=== PATIENT | female | born 1955 | race Caucasian/White ===

== ENCOUNTER → 2016-08-17 | Outpatient (CLI) | payer OTHER ==
[2016-03-02 10:45] VITALS: BP 166/104
[~2016-08-17] MED LIST: BACTRIM DS TAB1 EACH PO; LEVAQUIN 5500 MG/TA1 PO; LOW DOSE ASPIRI81 MG PO; NORCO 325 MG-51 TA1 PO; PRILOSEC10 M1 PO
== END ==
LOC: LAB 08:58
DX: D50.0 Iron deficiency anemia secondary to blood loss (chronic) (principal)

== ENCOUNTER → 2016-12-06 | Outpatient (CLI) | payer OTHER ==
[2016-03-02 10:45] VITALS: BP 166/104
== END ==
LOC: RAD 16:49
DX: M94.0 Chondrocostal junction syndrome [Tietze] (principal); K44.9 Diaphragmatic hernia without obstruction or gangrene; K80.80 Other cholelithiasis without obstruction

== ENCOUNTER → 2016-12-10 | Outpatient (CLI) | payer OTHER ==
[2016-03-02 10:45] VITALS: BP 166/104
== END ==
LOC: LAB 16:43
DX: K80.20 Calculus of gallbladder without cholecystitis without obstruction (principal)

== ENCOUNTER → 2016-12-12 | Outpatient (CLI) | payer OTHER ==
[2016-03-02 10:45] VITALS: BP 166/104
== END ==
LOC: RAD 09:10
DX: K80.20 Calculus of gallbladder without cholecystitis without obstruction (principal); M94.0 Chondrocostal junction syndrome [Tietze]; K80.19 Calculus of gallbladder with other cholecystitis with obstruction; K76.0 Fatty (change of) liver, not elsewhere classified

== ENCOUNTER → 2017-08-12 | Outpatient (CLI) | payer OTHER ==
[2016-03-02 10:45] VITALS: BP 166/104
[2017-08-12 19:56] LABS: HEMATOCRIT 24.4 % (37.0-47.0); MEAN PLATELET VOLUME 9.5 fl (7.4-10.4); RED BLOOD COUNT 3.15 M/mm3 (4.10-5.30); WHITE BLOOD COUNT 6.6 K/mm3 (4.8-10.8)
[2017-08-12 20:05] LABS: ALBUMIN 3.8 g/dL (3.5-5.0); BUN/CREATININE RATIO 19.5 (6.0-26.0); CALCIUM 9.1 mg/dL (8.4-10.2); POTASSIUM 4.2 mmol/L (3.6-5.0); TOTAL BILIRUBIN 0.1 mg/dL (0.2-1.3); TOTAL PROTEIN 6.5 g/dL (6.3-8.2)
[2017-08-12 21:22] LABS: HEMOGLOBIN 6.8 g/dL (12.5-16.0); RED CELL DISTRIBUTION WIDTH 18.4 % (11.5-14.5)
[2017-08-12 21:30] LABS: PH-URINE 7.5 (5.0 - 8.0); URINE APPEARANCE HAZY; URINE BILIRUBIN NEGATIVE (NEGATIVE); URINE BLOOD NEGATIVE (NEGATIVE); URINE COLOR YELLOW; URINE GLUCOSE NEGATIVE (NEGATIVE); URINE KETONE NEGATIVE (NEGATIVE); URINE LEUKOCYTE ESTERASE TRACE (NEGATIVE); URINE NITRATE NEGATIVE (NEGATIVE); URINE PROTEIN(semi-quant) NEGATIVE (NEGATIVE); URINE UROBILINOGEN NORMAL (NORMAL)
== END ==
LOC: LAB 16:07
PROVIDERS: Family Medicine
DX: R53.83 Other fatigue (principal); D64.9 Anemia, unspecified

== ENCOUNTER → 2017-08-13 | Outpatient (CLI) | payer OTHER ==
[2016-03-02 10:45] VITALS: BP 166/104
== END ==
LOC: LAB 11:53
DX: Z01.83 Encounter for blood typing (principal); D64.9 Anemia, unspecified

== ENCOUNTER → 2017-08-14 | Outpatient (CLI) | payer OTHER ==
[~2017-08-14] VITALS: Ht 160 cm; Wt 85.5 kg
[2017-08-14] VITALS (13 sets, daily range): BP systolic 106–150; BP diastolic 63–84
== END ==
LOC: AMSURD 15:27
DX: D64.9 Anemia, unspecified (principal)
CPT/HCPCS: P9016

== ENCOUNTER → 2017-09-30 | Outpatient (CLI) | payer OTHER ==
[2017-08-14 21:40] VITALS: BP 132/83
[2017-09-30 10:08] LABS: EOS # 0.1 (0.04-0.40); HEMATOCRIT 35.6 % (37.0-47.0); HEMOGLOBIN 10.5 g/dL (12.5-16.0); LYMPH# 1.2 (1.50-4.00); MEAN CELL VOLUME 85 fl (78-100); MEAN CORPUSCULAR HEMOGLOBIN 25 pg (27-31); MEAN CORPUSCULAR HGB CONC 30 g/dL (33-37); MEAN PLATELET VOLUME 8.5 fl (7.4-10.4); MONO # 0.3 (0.20-0.80); NEU # 2.8 (1.40-6.50); PLATELET COUNT 328 K/mm3 (130-400); WHITE BLOOD COUNT 4.4 K/mm3 (4.8-10.8)
[2017-09-30 10:18] LABS: RED CELL DISTRIBUTION WIDTH 19.4 % (11.5-14.5)
[2017-09-30 11:27] LABS: ALBUMIN 3.6 g/dL (3.5-5.0); BUN/CREATININE RATIO 17.9 (6.0-26.0); CALCIUM 8.9 mg/dL (8.4-10.2); POTASSIUM 3.9 mmol/L (3.6-5.0); TOTAL BILIRUBIN 0.2 mg/dL (0.2-1.3); TOTAL PROTEIN 6.3 g/dL (6.3-8.2)
== END ==
LOC: LAB 09:37
PROVIDERS: Family Medicine
DX: I10 Essential (primary) hypertension (principal); E78.5 Hyperlipidemia, unspecified; M85.80 Other specified disorders of bone density and structure, unspecified site

== ENCOUNTER → 2017-10-21 | Outpatient (CLI) | payer OTHER ==
[2017-08-14 21:40] VITALS: BP 132/83
== END ==
LOC: MAMMO 11:14
DX: Z12.31 Encounter for screening mammogram for malignant neoplasm of breast (principal)

== ENCOUNTER → 2018-11-04 | Outpatient (CLI) | payer BC ==
[2017-08-14 21:40] VITALS: BP 132/83
== END ==
LOC: MAMMO 14:11
DX: Z12.31 Encounter for screening mammogram for malignant neoplasm of breast (principal); Z13.820 Encounter for screening for osteoporosis; M81.0 Age-related osteoporosis without current pathological fracture

== ENCOUNTER → 2020-10-04 | Outpatient (CLI) | payer BC, MEDICARE ==
[2020-10-04 15:29] LABS: BASO # 0.06 (0.02-0.10); EOS # 0.14 (0.04-0.40); EOS % 2.4 % (1.0-5.0); HEMATOCRIT 41.5 % (37.0-47.0); HEMOGLOBIN 13.1 g/dL (12.5-16.0); LYMPH# 1.39 (1.50-4.00); MEAN CELL VOLUME 87 fl (78-100); MEAN CORPUSCULAR HEMOGLOBIN 28 pg (27-31); MEAN CORPUSCULAR HGB CONC 32 g/dL (33-37); MEAN PLATELET VOLUME 8.5 fl (7.4-10.4); MONO # 0.36 (0.20-0.80); NEU # 3.77 (1.40-6.50); PLATELET COUNT 258 K/mm3 (130-400); RED BLOOD COUNT 4.76 M/mm3 (4.10-5.30); RED CELL DISTRIBUTION WIDTH 13.7 % (11.5-14.5); WHITE BLOOD COUNT 5.7 K/mm3 (4.8-10.8)
[2020-10-04 15:30] LABS: ALBUMIN 3.8 g/dL (3.4-4.8); POTASSIUM 3.8 mmol/L (3.5-5.1)
[2020-10-04 15:31] LABS: CALCIUM 8.9 mg/dL (8.3-10.5)
[2020-10-04 15:33] LABS: TOTAL PROTEIN 6.3 g/dL (6.2-8.1)
[2020-10-04 15:35] LABS: TOTAL BILIRUBIN 0.3 mg/dL (0.2-1.2)
== END ==
LOC: LAB 14:45
PROVIDERS: Family Medicine
DX: Z00.00 Encounter for general adult medical examination without abnormal findings (principal); D50.9 Iron deficiency anemia, unspecified; E78.5 Hyperlipidemia, unspecified

== ENCOUNTER → 2020-10-24 | Outpatient (CLI) | payer BC, MEDICARE | LOC: MAMMO 09:45 | DX: Z13.820 Encounter for screening for osteoporosis (principal); Z12.31 Encounter for screening mammogram for malignant neoplasm of breast; M81.0 Age-related osteoporosis without current pathological fracture ==

== ENCOUNTER → 2021-07-18 | Outpatient (CLI) | payer BC | LOC: LAB 10:44 | DX: H60.11 Cellulitis of right external ear (principal) ==

== ENCOUNTER → 2022-02-05 | Outpatient (CLI) | payer BC ==
[2022-02-05 15:52] LABS: BASO # 0.04 K/mm3 (0.02-0.10); EOS # 0.17 K/mm3 (0.04-0.40); EOS % 2.6 % (1.0-5.0); HEMATOCRIT 41.8 % (37.0-47.0); HEMOGLOBIN 13.3 g/dL (12.5-16.0); LYMPH# 1.61 K/mm3 (1.50-4.00); MEAN CELL VOLUME 89 fl (78-100); MEAN CORPUSCULAR HEMOGLOBIN 28 pg (27-31); MEAN CORPUSCULAR HGB CONC 32 g/dL (33-37); MEAN PLATELET VOLUME 8.5 fl (7.4-10.4); MONO # 0.49 K/mm3 (0.20-0.80); NEU # 4.16 K/mm3 (1.40-6.50); PLATELET COUNT 239 K/mm3 (130-400); RED CELL DISTRIBUTION WIDTH 13.4 % (11.5-14.5); WHITE BLOOD COUNT 6.5 K/mm3 (4.8-10.8)
[2022-02-05 16:03] LABS: POTASSIUM 3.9 mmol/L (3.5-5.1)
[2022-02-05 16:04] LABS: ALBUMIN 3.9 g/dL (3.4-4.8)
[2022-02-05 16:05] LABS: CALCIUM 9.6 mg/dL (8.3-10.5)
[2022-02-05 16:06] LABS: TOTAL PROTEIN 6.5 g/dL (6.2-8.1)
[2022-02-05 16:08] LABS: TOTAL BILIRUBIN 0.3 mg/dL (0.2-1.2)
== END ==
LOC: LAB 15:40
PROVIDERS: Family Medicine
DX: Z00.00 Encounter for general adult medical examination without abnormal findings (principal); G20 Parkinson's disease; M81.0 Age-related osteoporosis without current pathological fracture; Z12.39 Encounter for other screening for malignant neoplasm of breast; K21.9 Gastro-esophageal reflux disease without esophagitis; D50.9 Iron deficiency anemia, unspecified; E78.5 Hyperlipidemia, unspecified; K57.30 Diverticulosis of large intestine without perforation or abscess without bleeding; K44.9 Diaphragmatic hernia without obstruction or gangrene; H90.5 Unspecified sensorineural hearing loss; I10 Essential (primary) hypertension; E66.9 Obesity, unspecified

== ENCOUNTER → 2022-02-06 | Outpatient (CLI) | payer BC | LOC: MAMMO 15:15 | DX: Z12.31 Encounter for screening mammogram for malignant neoplasm of breast (principal) ==

== ENCOUNTER → 2023-02-18 | Outpatient (CLI) | payer BC | LOC: LAB 15:44 | DX: Z00.00 Encounter for general adult medical examination without abnormal findings (principal); Z12.31 Encounter for screening mammogram for malignant neoplasm of breast; M79.672 Pain in left foot; E78.5 Hyperlipidemia, unspecified; K57.30 Diverticulosis of large intestine without perforation or abscess without bleeding; K21.9 Gastro-esophageal reflux disease without esophagitis; K44.9 Diaphragmatic hernia without obstruction or gangrene; I10 Essential (primary) hypertension; D50.9 Iron deficiency anemia, unspecified; E66.9 Obesity, unspecified; M81.0 Age-related osteoporosis without current pathological fracture; H90.5 Unspecified sensorineural hearing loss; G20.A2 Parkinson's disease without dyskinesia, with fluctuations; N39.46 Mixed incontinence; R07.9 Chest pain, unspecified ==

== ENCOUNTER → 2023-03-31 | Outpatient (CLI) | payer BC, MEDICARE | LOC: RAD 07:34 | DX: I34.0 Nonrheumatic mitral (valve) insufficiency (principal); I51.7 Cardiomegaly ==